=== PATIENT | female | born 1975 | race Two or more races ===

== ENCOUNTER 2018-07-13 21:09 | Emergency (ER) | payer BC, OTHER ==
[~2018-07-13] VITALS: Ht 152.4 cm; Wt 68.4 kg
--- NOTE | 2018-07-13 21:37 | NUR ---
assessment made. chart up for MD to see.
--- NOTE | 2018-07-13 21:43 | NUR ---
PA at bedside for patient evaluation.
[2018-07-13] MEDS ORDERED: PHENAZOPYRIDINE 200 MG TABLET ONE (21:54)
[2018-07-13 21:58] LABS: CULTURE INDICATED? YES; MICROSCOPIC INDICATED
[2018-07-13] MEDS ORDERED: PHENAZOPYRIDINE 200 MG TABLET PO ONE (22:00)
--- NOTE | 2018-07-13 22:09 | NUR ---
urinalysis resulted. chart up for MD to re-eval.
--- NOTE | 2018-07-13 23:14 | NUR ---
re-evaluation done. patient discharged with prescriptions and instruction. verbalized understanding.
[2018-07-13 23:15] VITALS: BP 111/71
== END 2018-07-13 23:18 | disposition home or self-care (01) ==
LOC: ED 22:45
DX: N30.01 Acute cystitis with hematuria (principal)
CPT/HCPCS: 81001; 81025; 87077; 87086; 87186; 99283